=== PATIENT | female | born 1960 | race Caucasian/White ===

== ENCOUNTER 2017-12-31 15:16 | Outpatient (RCR) | payer BC, SELFPAY ==
[2017-12-31 19:38] LABS: HCT 38.3 % (36.0-46.0); HGB 12.6 g/dL (12.0-15.5); Mean Corp. HGB Concentration 32.9 g/dL (32.0-36.0); Mean Corpuscular Hemoglobin 28.7 pg (27.0-33.0); Mean Corpuscular Volume 87.2 fL (80-95); Mean Platelet Volume 11.7 fL (8.0-11.0); RBC 4.39 m/cumm (4.00-5.20); RBC Distribution Width 15.7 % (11.7-14.6); White Blood Cell Count 10.71 k/cumm (4.4-10.8)
[2017-12-31 19:51] LABS: ALT 67 U/L (12-78); AST 31 U/L (15-37); Albumin 3.5 g/dL (3.4-5.0); Alkaline Phosphatase 89 U/L (46-116); Anion Gap 11.7 mmol/L (3-11); BUN 25 mg/dL (7-18); Bilirubin, Total 0.9 mg/dL (0.2-1.0); CO2 26.3 mmol/L (21.0-32.0); CREATININE 1.92 mg/dL (0.55-1.02); Calcium 9.8 mg/dL (8.5-10.1); Chloride 97 mmol/L (98-107); Estimated GFR 27.02 (mL/min/1.73m2); Glucose 112 mg/dL (70-100); Potassium 4.6 mmol/L (3.5-5.1); Sodium 135 mmol/L (136-145); Total Protein 7.3 g/dL (6.4-8.2)
[2017-12-31 20:36] LABS: Absolute Eosinophil Count 0.32 k/cumm (0.0-0.7); Absolute Lymphocyte Count 0.75 k/cumm (1.2-3.4); Absolute Monocyte Count 1.39 k/cumm (0.11-0.7); Absolute Neutrophil Count 8.25 k/cumm (1.2-6.7)
[2017-12-31 20:37] LABS: Diff Comment Manual Differential; Platelet Count 222 x1000/uL (130-400); RBC Morphology Normal
== END 2018-01-06 23:59 | disposition home or self-care (01) ==
LOC: NCHCN 15:16
PROVIDERS: PCP Internal Medicine; Visit Provider Internal Medicine
DX: N10 Acute pyelonephritis (principal); B02.9 Zoster without complications; K76.0 Fatty (change of) liver, not elsewhere classified
CPT/HCPCS: 80053; 85025

== ENCOUNTER 2019-01-14 10:50 | Outpatient (REF) | payer BC, SELFPAY | END 2019-01-14 11:10 | LOC: NCHCN 10:50 | PROVIDERS: PCP Internal Medicine; Visit Provider Nurse Practitioner Family | DX: N39.0 Urinary tract infection, site not specified (principal) | CPT/HCPCS: 87077; 87086; 87186 ==

== ENCOUNTER 2019-08-02 20:39 | Outpatient (REF) | payer BC, SELFPAY ==
[2019-08-02 18:50] LABS: HCT 41.1 % (36.0-46.0); HGB 13.9 g/dL (12.0-15.5); Mean Corp. HGB Concentration 33.8 g/dL (32.0-36.0); Mean Corpuscular Hemoglobin 30.2 pg (27.0-33.0); Mean Corpuscular Volume 89.2 fL (80-95); Platelet Count 193 x1000/uL (130-400); RBC 4.61 m/cumm (4.00-5.20); RBC Distribution Width 15.4 % (11.7-14.6); White Blood Cell Count 7.85 k/cumm (4.4-10.8)
[2019-08-02 19:21] LABS: ALT 41 U/L (14-59); AST 35 U/L (15-37); Albumin 3.8 g/dL (3.4-5.0); Alkaline Phosphatase 82 U/L (46-116); Anion Gap 9.9 mmol/L (3-11); BUN 28 mg/dL (7-18); Bilirubin, Total 0.6 mg/dL (0.2-1.0); CO2 25.1 mmol/L (21.0-32.0); CREATININE 1.51 mg/dL (0.55-1.02); Chloride 102 mmol/L (98-107); Estimated GFR 35.39 (mL/min/1.73m2); Glucose 237 mg/dL (74-106); Potassium 3.9 mmol/L (3.5-5.1); Sodium 137 mmol/L (136-145); TSH 0.55 uIU/mL (0.36-3.74); Total Protein 7.2 g/dL (6.4-8.2)
[2019-08-02 19:38] LABS: Hemoglobin A1C 6.1 % (3.8-5.6)
[2019-08-04 13:32] LABS: Tacrolimus 7.1 ng/mL (See Note)
== END 2019-08-02 20:59 ==
LOC: NCHCN 20:39
PROVIDERS: PCP Internal Medicine; Visit Provider Internal Medicine
DX: Z94.0 Kidney transplant status (principal); R73.9 Hyperglycemia, unspecified; Z68.37 Body mass index [BMI] 37.0-37.9, adult; Z51.81 Encounter for therapeutic drug level monitoring
CPT/HCPCS: 80053; 85027; 80197; 83036; 84443

== ENCOUNTER 2019-10-12 11:52 | Outpatient (REF) | payer BC, SELFPAY ==
[2019-10-14 23:25] LABS: SARS-CoV-2 RNA Undetected (Undetected); SARS-CoV-2 Specimen Source Nasopharynx
== END 2019-10-12 12:12 ==
LOC: NCHCN 11:52
PROVIDERS: PCP Internal Medicine; Visit Provider Physician Assistant
DX: Z20.828 Contact with and (suspected) exposure to other viral communicable diseases (principal)
CPT/HCPCS: U0003

== ENCOUNTER 2020-07-30 16:26 | Outpatient (REF) | payer BC, SELFPAY ==
--- OUTSIDE RECORDS SUMMARY | 2020-07-30 16:32 | XMS_ITS ---
:1960 Author Care Team Providers Name Role Phone TONI EDWARDS MD Primary Care Provider [phone] Allergies Code Code System Name Reaction Severity Status Onset 8394297 RxNorm Latex ? ? Active ? Medications Name Status Start Date Stop Date ? ? Aerochamber Plus Flow-Vu Active ? Not annette ilable albuterol sulfate HFA 90 Active ? Not annette ilable mcg/actuation aerosol inhaler allopurinol 300 mg tablet Active ? Not av ailable amoxicillin 500 mg capsule Completed ? 11/08 cephalexin 500 mg capsule Completed ? 2019 ciprofloxacin 250 mg tablet Completed 03/25/201703/10 1 (one) Tablet: two times daily Contour Next Meter Active ? Not available cyclobenzaprine 10 mg tablet Completed ? 04/2019 fluoxetine 20 mg capsule Active ? Not annette ilable hydrocodone 5 mg-acetaminophen Completed ? 0 11/09/2019 325 mg tablet hydroxyzine HCl 25 mg tablet Active ? Not available ondansetron 4 mg disintegrating Active ? Not available tablet ondansetron HCl 4 mg tablet Active ? Not available Prograf 1 mg capsule Active ? Not availab le sulfamethoxazole 400 Completed ? 11/09/2019 mg-trimethoprim 80 mg tablet sulfamethoxazole 800 Completed ? 11/09/2019 mg-trimethoprim 160 mg tablet timolol maleate 0.5 % eye drops Active ? Not available triamcinolone acetonide 0.1 % Completed ? topical cream triamcinolone acetonide 0.1 % Completed ? topical ointment valacyclovir 1 gram tablet Completed ? 11/08 valacyclovir 500 mg tablet Completed ? 11/08 Problems Name Status Onset Date Source ? Polyp of Colon Active 12/29/2017 ? Hyperlipidemia Active 12/29/2017 ? Gout Active 12/29/2017 ? Insomnia Active 12/29/2017 ? Glaucoma Active 12/29/2017 ? Osteoarthritis Active 12/29/2017 ? Chronic Back Pain Active 12/29/2017 ? Bursitis Active 12/29/2017 ? Screening for Malignant Neoplasm of Active ? History Cervix Procedures Date Name Performed by ? 03/09/1987 Tubal Ligation Information not avai lable 03/09/1981 Breast Reconstruction Information not av ailable Notes: breast reduction ? Transplant of Kidney Information not annette ilable Notes: Kidney Transplant Results Lab Results Date Name Specimen Result Interpretation Description Value Range Status Address ? 11/09/2019 Pap Test, MISC ? Hpv see report ? Final [facility] Hospital Lab (Internal) : [address] ? ? MISC ? Pap see report ? Final [facility] L ab (Internal) : [address] ? ? MISC ? Report (see below) ? Final [facility] L ab (Internal) : [address] 10/25/2018 Pap Test, MISC - Hpv see report ? Final [facility] Lab (Internal) : [address] ? ? MISC - Pap see report ? Final [facility] L ab (Internal) : [address] ? ? MISC - Report (added) ? Corrected [facility] L ab (Internal) : [address] 07/29/2018 Tacrolimus, BLD - Fk 506 7.5 NG/mL ? [facility] Quant, Serum Coun try or Plasma Hospita l Lab (Internal) : [address] 07/08/2018 Tacrolimus, BLD - Fk 506 9.5 NG/mL ? [facility] Quant, Serum Coun try or Plasma Hospita l Lab (Internal) : [address] 06/16/2018 Tacrolimus, BLD - Fk 506 9.5 NG/mL ? [facility] Quant, Serum Coun try or Plasma Hospita l Lab (Internal) : [address] 06/16/2018 Urinalysis, UR - UA-color yellow pale Final [place] [facility] Complete yellow [facility] Hospital L ab (Internal) : [address] ? ? UR - UA-appea clear clear Final [place] [facility] r [facility] Hospital L ab (Internal) : [address] ? ? UR - UA-spec 1.010 1.003- Final [place] [facility] Grav 1.035 [facility] Hospital L ab (Internal) : [address], [address] ? ? UR - UA-pH 5.5 [pH] 4.6-8. Final [facility] [facility] 0 [pH] [facility] ab (Internal) : [address] t ? ? UR ABNORMA UA-leuk trace negati Final [facility] ab (Internal) : [address] t ? ? UR - UA-nitri negative negati Final [facility] ab (Internal) : [address] t ? ? UR - UA-prot negative negati Final [facility] ab (Internal) : [address] t ? ? UR - UA-gluc negative negati Final [facility] ab (Internal) : [address] t ? ? UR - UA-keton negative negati Final [facility] ab (Internal) : [address] t ? ? UR - UA-urobi normal normal Final [facility] (Internal) : [address] t ? ? UR - UA-bili negative negati Final [facility] ab (Internal) : [address] t ? ? UR - UA-blood negative negati Final [facility] ab (Internal) : [address] ? ? UR ABNORMA UA-WBC 3-5 [hpf] 0-[address] [facility] [hpf] [facility] ab (Internal) : [address] ? ? UR - UA-RBC 0-2 [hpf] 0-2 Final [facility] [facility] [hpf] [facility] ab (Internal) : [address] t ? ? UR ABNORMA UA-bacte few [hpf] none Final [facility] L subhash seen [facility] [hpf] Hospital ab (Internal) : [address] t ? ? UR - UA-epith rare [hpf] none Final Nor th elial seen [facility] [hpf] Hospital ab (Internal) : [address] t ? ? UR - UA-mucus none seen none Final Nort h [hpf] seen [facility] [hpf] Hospital ab (Internal) : [address] [facility] 06/16/2018 Protein/creat UR - Prot/cre 0.33 mg/dL ? Final [place] inine, Ratio, a Ratio, C ountry Urine U [facility] [address] [facility] ? ? UR - U-crea, 45 mg/dL 30-125 Final [place] Spot mg/dL [facility] (Internal[facility] : [address] [facility] ? ? UR High U-prot, 15.0 mg/dL 0.0-11 Final Nort h Spot .9 [facility] mg/dL Hospital L ab (Internal) : [address] [facility] 06/16/2018 Uric Acid, S High Urca 12.5 mg/dL 2.5-6. Final [place] Serum or 2 [facility] Plasma mg/dL Hospital L ab (Internal) : [address] [facility] 06/16/2018 Magnesium, S - mg 1.8 mg/dL 1.6-2. Final [facility] [facility] QN, Serum or 3 Coun try Plasma mg/dL Hospital L ab (Internal) : [address] [facility] 06/16/2018 Cholesterol, S High Chol 208 mg/dL 50-200 Lu l [place] Total, Serum mg/dL Coun try Hospital L ab (Internal) : [address] [facility] 06/16/2018 CMP, Serum or S - g/r 104 mg/dL 74-106 Fin al [facility] Plasma mg/dL [facility] L ab (Internal) : [address] ? ? S High Bun 33 mg/dL 7-17 Final [facility] mg/dL [facility] L ab (Internal) : [address] ? ? S High Crea 1.50 mg/dL 0.52-1 Final [place] .04 [facility] mg/dL Hospital L ab (Internal) : [address] ? ? S - Ca 10.1 mg/dL 8.4-10 Final [place] .2 [facility] mg/dL Hospital L ab (Internal) : [address] ? ? S - Na 137 mmol/L 137-14 Final [place] 5 [facility] mmol/L Hospital L ab (Internal) : [address] ? ? S - K 4.4 mmol/L 3.5-5. Final [place] 1 [facility] mmol/L Hospital L ab (Internal) : [address] ? ? S - Cl 105 mmol/L 98-107 Final [place] mmol/L [facility] L ab (Internal) : [address] ? ? S - Tco2 23.0 mmol/L 22.0-3 Final [facility] [facility] 0.0 [facility] mmol/L Hospital L ab (Internal) : [address] ? ? S - Tp 7.4 g/dL 6.3-8. Final [facility] [facility] 2 g/dL [facility] Hospital L ab (Internal) : [address] ? ? S - Alb 4.1 g/dL 3.5-5. Final [place] 0 g/dL [facility] Hospital L ab (Internal) : [address] ? ? S - Tbil 0.7 mg/dL 0.2-1. Final [place] 3 [facility] mg/dL Hospital L ab (Internal) : [address] ? ? S - Alp 79 U/L 50-136 Final [place] U/L [facility] L ab (Internal) : [address] ? ? S - Alt 25 U/L 9-52 Final [facility] [facility] (Sgpt) U/L [facility] L ab (Internal) : [address] ? ? S - Ast 33 U/L 14-36 Final [place] (Sgot) U/L [facility] L ab (Internal) : [address] 06/16/2018 Phosphorus, S High Phos 4.6 mg/dL 2.5-4. Final [facility] [facility] Serum or 5 [facility] Plasma mg/dL Hospital L ab (Internal) : [address]al 06/16/2018 CBC W/ Auto BLD - Wbc 5.9 10*3/uL 5.0-10 Fin al [place] Diff .0 [facility] 10*3/u Hospital L ab L (Internal) : [address] ? ? BLD - Rbc 4.85 4.10-5 Final [place] 10*6/uL .30 [facility] 10*6/u Hospital L ab L (Internal) : [address] ? ? BLD - Hgb 13.8 g/dL 12.0-1 Final [facility] 6.0 [facility] g/dL Hospital L ab (Internal) : [address] ? ? BLD - Hct 41.7 % 37.0-4 Final [facility] 7.0 % [facility] L ab (Internal) : [address] ? ? BLD - Mcv 86.0 fL 80.0-9 Final [facility] 6.0 fL [facility] L ab (Internal) : [address] ? ? BLD - Mch 28.5 pg 26.0-3 Final [facility] 2.0 pg [facility] L ab (Internal) : [address] ? ? BLD - Mchc 33.1 g/dL 31.0-3 Final [facility] 5.0 [facility] g/dL Hospital L ab (Internal) : [address] ? ? BLD High Rdw 14.9 % 11.5-1 Final [facility] 4.5 % [facility] L ab (Internal) : [address] ? ? BLD - Plt 181 10*3/uL 130-45 Final [facility] 0 [facility] 10*3/u Hospital L ab L (Internal) : [address] ? ? BLD - Anc 3.78 ? Final [facility] 10*3/uL [facility] L ab (Internal) : [address] ? ? BLD - Neutro 63.8 % 40.0-7 Final [facility] 5.0 % [facility] L ab (Internal) : [address] ? ? BLD Low Lymph 19.9 % 20.0-5 Final [facility] 0.0 % [facility] L ab (Internal) : [address] ? ? BLD High Cowley 11.7 % 2.0-10 Final [facility] .0 % [facility] L ab (Internal) : [address] ? ? BLD - Eos 3.4 % 1.0-6. Final [facility] 0 % [facility] L ab (Internal) : [address] ? ? BLD - Baso 0.7 % 0.0-1. Final [facility] 0 % [facility] L ab (Internal) : [address] ? ? BLD - Ig 0.5 % 0.0-0. Final [facility] 9 % [facility] L ab (Internal) : [address] 12/29/2017 CBC W/ Auto BLD High Wbc 13.7 5.0-10 Final N orth Diff 10*3/uL .0 [facility] 10*3/u Hospital L ab L (Internal) : [address] ? ? BLD - Rbc 5.00 4.10-5 Final [place] 10*6/uL .30 [facility] 10*6/u Hospital L ab L (Internal) : [address] ? ? BLD - Hgb 14.5 g/dL 12.0-1 Final [place] 6.0 [facility] g/dL Hospital L ab (Internal) : [address] ? ? BLD - Hct 42.2 % 37.0-4 Final [place] 7.0 % [facility] L ab (Internal) : [address] ? ? BLD - Mcv 84.4 fL 80.0-9 Final [place] 6.0 fL [facility] L ab (Internal) : [address] ? ? BLD - Mch 29.0 pg 26.0-3 Final [place] 2.0 pg [facility] L ab (Internal) : [address] ? ? BLD - Mchc 34.4 g/dL 31.0-3 Final [place] 5.0 [facility] g/dL Hospital L ab (Internal) : [address] ? ? BLD High Rdw 15.6 % 11.5-1 Final [place] 4.5 % [facility] L ab (Internal) : [address] ? ? BLD - Plt 171 10*3/uL 130-45 Final [place] 0 [facility] 10*3/u Hospital L ab L (Internal) : [address] 12/29/2017 Lipase, Serum S - Lip 61 U/L 23-300 Final [facility] or Plasma U/L [facility] L ab (Internal) : [address] 12/29/2017 CMP, Serum or S High g/r 160 mg/dL 74-106 Fin al [facility] Plasma mg/dL [facility] L ab (Internal) : [address] ? ? S High Bun 30 mg/dL 7-17 Final [facility] mg/dL [facility] L ab (Internal) : [address] ? ? S High Crea 2.20 mg/dL 0.52-1 Final [facility] .04 [facility] mg/dL Hospital L ab (Internal) : [address] t ? ? S High Ca 10.3 mg/dL 8.4-10 Final [facility] .2 [facility] mg/dL Hospital L ab (Internal) : [address] t ? ? S Low Na 136 mmol/L 137-14 Final [facility] 5 [facility] mmol/L Hospital L ab (Internal) : [address] t ? ? S - K 3.8 mmol/L 3.5-5. Final [facility] 1 [facility] mmol/L Hospital L ab (Internal) : [address] t ? ? S - Cl 100 mmol/L 98-107 Final [place] mmol/L [facility] L ab (Internal) : [address] t ? ? S Low Tco2 21.0 mmol/L 22.0-3 Final [facility] 0.0 [facility] mmol/L Hospital L ab (Internal) : [address] t ? ? S High Tp 8.4 g/dL 6.3-8. Final [facility] 2 g/dL [facility] L ab (Internal) : [address] t ? ? S - Alb 4.6 g/dL 3.5-5. Final [facility] 0 g/dL [facility] L ab (Internal) : [address] t ? ? S High Tbil 1.7 mg/dL 0.2-1. Final [facility] 3 [facility] mg/dL Hospital L ab (Internal) : [address] t ? ? S - Alp 83 U/L 50-136 Final [place] U/L [facility] L ab (Internal) : [address] t ? ? S High Alt 63 U/L 9-52 Final [place] [facility] (Sgpt) U/L [facility] L ab (Internal) : [address] t ? ? S High Ast 56 U/L 14-36 Final [facility] (Sgot) U/L [facility] L ab (Internal) : [address] t 12/29/2017 Differential, BLD High Polys 81 % 40-75 Final [facility] [facility] Manual, Blood % Cou ntr Hospital L ab (Internal) : [address] t ? ? BLD - Bands 2 % 0-5 % Final [facility] L ab (Internal) : [address] t ? ? BLD Low Lymphs 7 % 20-50 Final [facility] Hospital L ab (Internal) : [address] t ? ? BLD - Cowley 10 % 2-10 % Final [facility] L ab (Internal) : [address] t ? ? BLD - Eos 0 % 0-6 % Final [facility] L ab (Internal) : [address] t ? ? BLD - Baso 0 % 0-1 % Final [facility] L ab (Internal) : [address] t ? ? BLD - Atyp 0 % ? Final [facility] L ab (Internal) : [address] t ? ? BLD - Plts, adequate adequa Final [place] [facility] Est. te [facility] Hospital L ab (Internal) : [address] t ? ? BLD ABNORMA RBC abnormal normal Final [facility] Morpholog [facility] Hospital L ab (Internal) : [address] t ? ? BLD - Aniso occasional ? Final [facility] ab (Internal) : [address] t 12/29/2017 Neutrophil BLD - Anc-manu 11.40 ? Final [place] [facility] Count, al 10*3/uL [facility] Lab (Anc), Blood (Int ernal): [address] t 12/29/2017 Culture, BLD - Final microbiolog ? Final [facility] [facility] Blood 1 y results [facility] L ab (Internal) : [address] t 12/29/2017 Culture, BLD - Final microbiolog ? Final [place] [facility] Blood 2 y results [facility] L ab (Internal) : [address] t 12/29/2017 Urinalysis, UR - UA-color pale yellow pale Final [place] Dipstick, yellow [facility] Reflex Micro Hosp ital Lab (Internal) : [address] t ? ? UR ABNORMA UA-appea hazy clear Final [facility] L r [facility] L ab (Internal) : [address] ? ? UR - UA-spec 1.010 1.003- Final [place] Grav 1.035 [facility] ab (Internal) : [address] ? ? UR - UA-pH 6.0 [pH] 4.6-8. Final [place] [facility] 0 [pH] [facility] ab (Internal) : [address] t ? ? UR ABNORMA UA-leuk trace negati Final [facility] ab (Internal) : [address] t ? ? UR - UA-nitri negative negati Final [facility] ab (Internal) : [address] t ? ? UR - UA-prot negative negati Final [facility] ab (Internal) : [address] ? ? UR - UA-gluc negative negati Final [facility] ab (Internal) : [address] t ? ? UR - UA-keton negative negati Final [facility] ab (Internal) : [address] ? ? UR - UA-urobi normal normal Final [facility] ab (Internal) : [address] t ? ? UR - UA-bili negative negati Final [facility] ab (Internal) : [address] ? ? UR ABNORMA UA-blood moderate negati [facility] [address] 12/29/2017 Urinalysis, UR ABNORMA UA-WBC 10-25 [hpf] 0-3 F inal [facility] [facility] Microscopic L [hpf] Count Hospital L ab (Internal) : [address] ? ? UR ABNORMA UA-RBC 3-5 [hpf] 0-[address] [facility] [hpf] [facility] ab (Internal) : [address] ? ? UR ABNORMA UA-bacte few [hpf] none Final Nor th L subhash seen [facility] [hpf] Hospital ab (Internal) : [address] ? ? UR - UA-epith rare [hpf] none Final Nor th elial seen [facility] [hpf] Hospital L ab (Internal) : [address] t ? ? UR - UA-mucus none seen none Final Nort h [hpf] seen [facility] [hpf] Hospital ab (Internal) : [address] 12/29/2017 Culture UR - Final microbiolog ? Final [place] ([place] y results Countr y Count), Urine Hos pital Lab (Internal) : [address] 05/26/2017 Pap Test, MISC ? Hpv see report ? Final [place] [facility] Thinprep, [facility] Cervical [facility] Lab (Internal) : [address] ? ? MISC ? Pap see report ? Final [facility] Hospital L ab (Internal) : [address] t ? ? MISC ? Report (added) ? Corrected [facility] results [facility] Hospital L ab (Internal) : [address] 04/24/2017 Venipuncture BLD ? Venpn* ? ? Final [facility] ab (Internal) : [address] 04/24/2017 Culture, UR ? Final microbiolog ? Final [place] Urine y results [facility] ab (Internal) : [address] 04/24/2017 Protein/creat UR ? Prot/cre 0.31 mg/dL ? Final [place] inine, Ratio, a Ratio, C ountry Urine U Hospital L ab (Internal) : [address] ? ? UR ? U-crea, 42 mg/dL 30-125 Final [place] Spot mg/dL [facility] L ab (Internal) : [address] ? ? UR High U-prot, 13.0 mg/dL 0.0-11 Final Nort h Spot .9 [facility] mg/dL Hospital L ab (Internal) : [address] t 04/24/2017 Urinalysis, UR ? UA-WBC 0-3 [hpf] 0-3 Lu [facility] Microscopic [hpf] Count Hospital L ab (Internal) : [address] ? ? UR ? UA-RBC 0-2 [hpf] 0-2 Final [place] [hpf] [facility] L ab (Internal) : [address] ? ? UR ABNORMA UA-bacte few [hpf] none Final Nor th L subhash seen [facility] [hpf] Hospital L ab (Internal) : [address] ? ? UR ABNORMA UA-epith few [hpf] none Final Nor th L elial seen [facility] [hpf] Hospital L ab (Internal) : [address] ? ? UR ? UA-mucus none seen none Final Nort h [hpf] seen [facility] [hpf] Hospital L ab (Internal) : [address] t 04/24/2017 Urinalysis, UR ? UA-color pale yellow pale Final [place] Dipstick, yellow [facility] Reflex Micro Hosp ital Lab (Internal) : [address] ? ? UR ? UA-appea clear clear Final [facility] Hospital L ab (Internal) : [address] ? ? UR ? UA-spec <=1.005 1.003- Final [place] Grav 1.035 [facility] Hospital L ab (Internal) : [address] ? ? UR ? UA-pH 6.5 [pH] 4.6-8. Final [place] 0 [pH] [facility] Hospital L ab (Internal) : [address] ? ? UR ? UA-leuk negative negati Final [facility] Hospital L ab (Internal) : [address] ? ? UR ? UA-nitri negative negati Final [facility] Hospital L ab (Internal) : [address] ? ? UR ? UA-prot negative negati Final [facility] Hospital L ab (Internal) : [address] ? ? UR ? UA-gluc negative negati Final [facility] Hospital L ab (Internal) : [address] ? ? UR ? UA-keton negative negati Final [place] e [facility] Hospital L ab (Internal) : [address] ? ? UR ? UA-urobi normal normal Final [facility] (Internal) : [address] ? ? UR ? UA-bili negative negati Final [facility] Hospital L ab (Internal) : [address] ? ? UR ABNORMA UA-blood trace negati Final [facility] Hospital L ab (Internal) : [address] 04/24/2017 Tacrolimus, BLD ? Fk 506 7.4 NG/mL ? Lu l [place] Quant, Serum Coun try or Plasma Hospita l Lab (Internal) : [address] 04/24/2017 Uric Acid, S High Urca 8.8 mg/dL 2.5-6. Final [place] Serum or 2 [facility] Plasma mg/dL Hospital L ab (Internal) : [address] [facility] 04/24/2017 Magnesium, S Low mg 1.4 mg/dL 1.6-2. Final [place] QN, Serum or 3 Coun try Plasma mg/dL Hospital L ab (Internal) : [address] 04/24/2017 Cholesterol, S ? Chol 188 mg/dL 50-200 Lu l [place] Total, Serum mg/dL Coun try Hospital L ab (Internal) : [address] [facility] 04/24/2017 CMP, Serum or S ? g/r 98 mg/dL 74-106 Lu l [place] Plasma mg/dL [facility] Hospital L ab (Internal) : [address] ? ? S High Bun 25 mg/dL 7-17 Final [place] mg/dL [facility] Hospital L ab (Internal) : [address] ? ? S High Crea 1.70 mg/dL 0.52-1 Final [place] .04 [facility] mg/dL Hospital L ab (Internal) : [address] ? ? S ? Ca 9.7 mg/dL 8.4-10 Final [place] .2 [facility] mg/dL Hospital L ab (Internal) : [address] ? ? S ? Na 140 mmol/L 137-14 Final [place] 5 [facility] mmol/L Hospital L ab (Internal) : [address] ? ? S ? K 4.2 mmol/L 3.5-5. Final [place] 1 [facility] mmol/L Hospital L ab (Internal) : [address] ? ? S ? Cl 102 mmol/L 98-107 Final [place] mmol/L [facility] Hospital L ab (Internal) : [address] ? ? S ? Tco2 26.0 mmol/L 22.0-3 Final [place] 0.0 [facility] mmol/L Hospital L ab (Internal) : [address] ? ? S ? Tp 7.0 g/dL 6.3-8. Final [place] 2 g/dL [facility] Hospital L ab (Internal) : [address] ? ? S ? Alb 3.9 g/dL 3.5-5. Final [place] 0 g/dL [facility] Hospital L ab (Internal) : [address] ? ? S ? Tbil 0.7 mg/dL 0.2-1. Final [place] 3 Country mg/dL Hospital L ab (Internal) : [address] ? ? S ? Alp 87 U/L 50-136 Final [place] U/L [facility] Hospital L ab (Internal) : [address] ? ? S ? Alt 35 U/L 9-52 Final [place] (Sgpt) U/L [facility] Hospital L ab (Internal) : [address] ? ? S ? Ast 26 U/L 14-36 Final [place] (Sgot) U/L [facility] Hospital L ab (Internal) : [address] 04/24/2017 Phosphorus, S ? Phos 3.7 mg/dL 2.5-4. Final [place] Serum or 5 Country Plasma mg/dL Hospital L ab (Internal) : [address] 04/24/2017 CBC W/ Auto BLD ? Wbc 5.2 10*3/uL 5.0-10 Fin al [place] Diff .0 [facility] 10*3/u Hospital L ab L (Internal) : [address] ? ? BLD ? Rbc 4.39 4.10-5 Final [place] 10*6/uL .30 [facility] 10*6/u Hospital L ab L (Internal) : [address] ? ? BLD ? Hgb 13.1 g/dL 12.0-1 Final [place] 6.0 [facility] g/dL Hospital L ab (Internal) : [address] ? ? BLD ? Hct 37.6 % 37.0-4 Final [place] 7.0 % [facility] Hospital L ab (Internal) : [address] ? ? BLD ? Mcv 85.6 fL 80.0-9 Final [place] 6.0 fL [facility] Hospital L ab (Internal) : [address] [place] ? ? BLD ? Mch 29.8 pg 26.0-3 Final [facility] 2.0 pg [facility] Hospital L ab (Internal) : [address] [place] ? ? BLD ? Mchc 34.8 g/dL 31.0-3 Final [place] 5.0 [facility] g/dL Hospital L ab (Internal) : [address] [place] ? ? BLD High Rdw 14.8 % 11.5-1 Final [facility] 4.5 % [facility] Hospital L ab (Internal) : [address] [place] ? ? BLD ? Plt 177 10*3/uL 130-45 Final [place] 0 [facility] 10*3/u Hospital L ab L (Internal) : [address] [place] ? ? BLD ? Anc 3.19 ? Final [place] 10*3/uL [facility] Hospital L ab (Internal) : [address] [place] ? ? BLD ? Neutro 61.9 % 40.0-7 Final [facility] 5.0 % [facility] Hospital L ab (Internal) : [address] [place] ? ? BLD ? Lymph 25.6 % 20.0-5 Final [facility] 0.0 % [facility] Hospital L ab (Internal) : [address] [place] ? ? BLD ? Cowley 6.8 % 2.0-10 Final [facility] .0 % [facility] Hospital L ab (Internal) : [address] [place] ? ? BLD ? Eos 4.9 % 1.0-6. Final [place] 0 % [facility] Hospital L ab (Internal) : [address] [place] ? ? BLD ? Baso 0.6 % 0.0-1. Final [place] 0 % Country [facility] (Internal[facility] : [address] [place] ? ? BLD ? Ig 0.2 % 0.0-0. Final [facility] 9 % [facility] : [address] [place] 03/25/2017 Culture, UR ? Final microbiolog ? Final [facility] Urine y results [facility] : [address] [place] 03/25/2017 sensitivities MISC ? Sens* ? ? Final [facility] [I] [facility] : [address] 03/25/2017 Urinalysis, UR ? UA-color pale yellow pale Final [facility] yellow [facility] L ab (Internal) : [address] t ? ? UR ? UA-appea clear clear Final [facility] (Internal) : [address] t ? ? UR ? UA-spec <=1.005 1.003- Final [place] Grav 1.035 [facility] L ab (Internal) : [address] t ? ? UR ? UA-pH 5.5 [pH] 4.6-8. Final [place] 0 [pH] [facility] L [facility] (Internal) : [address] t ? ? UR ABNORMA UA-leuk small negati Final [facility] L ab (Internal) : [address] t ? ? UR ? UA-nitri negative negati Final [facility] L [facility] (Internal) : [address] t ? ? UR ? UA-prot negative negati Final [facility] L ab (Internal) : [address] t ? ? UR ? UA-gluc negative negati Final [facility] L ab (Internal) : [address] t ? ? UR ? UA-keton negative negati Final [facility] L ab (Internal) : [address] t ? ? UR ? UA-urobi normal normal [facility] : [address] t ? ? UR ? UA-bili negative negati Final [facility] L ab (Internal) : [address] t ? ? UR ABNORMA UA-blood large negati Final [facility] L ab (Internal) : [address] t ? ? UR ABNORMA UA-WBC 10-25 [hpf] 0-3 Final Nor th L [hpf] [facility] L [facility] (Internal) : [address] t ? ? UR ? UA-RBC 0-2 [hpf] 0-2 Final [place] [hpf] [facility] (Internal) : [address] t ? ? UR ABNORMA UA-bacte many [hpf] none Final No rth L subhash seen [facility] [hpf] Hospital L ab (Internal) : [address] t ? ? UR ABNORMA UA-epith few [hpf] none Final Nor th L elial seen [facility] [hpf] [facility] L [facility] (Internal) : [address] t ? ? UR ? UA-mucus none seen none Final Nort h [hpf] seen [facility] [hpf] [facility] L [facility] (Internal) : [address] 12/06/2016 Lipase, Serum S ? Lip 55 U/L 23-300 Final [facility] or Plasma U/L [facility] : [address] 12/06/2016 CMP, Serum or S High g/r 142 mg/dL 74-106 Fin al [facility] Plasma mg/dL [facility] : [address] t ? ? S High Bun 27 mg/dL 7-17 Final [facility] mg/dL [facility] : [address] ? ? S High Crea 1.70 mg/dL 0.52-1 Final [facility] .04 [facility] mg/dL Hospital L ab (Internal) : [address] ? ? S ? Ca 9.8 mg/dL 8.4-10 Final [facility] .2 [facility] mg/dL Hospital L ab (Internal) : [address] t ? ? S ? Na 138 mmol/L 137-14 Final [facility] 5 [facility] mmol/L Hospital L ab (Internal) : [address] t ? ? S ? K 4.1 mmol/L 3.5-5. Final [facility] 1 [facility] mmol/L Hospital L ab (Internal) : [address] t ? ? S ? Cl 106 mmol/L 98-107 Final [place] mmol/L [facility] : [address] t ? ? S Low Tco2 17.0 mmol/L 22.0-3 Final [facility] 0.0 [facility] mmol/L Hospital L ab (Internal) : [address] t ? ? S ? Tp 7.6 g/dL 6.3-8. Final [facility] 2 g/dL [facility] : [address] t ? ? S ? Alb 4.5 g/dL 3.5-5. Final [place] 0 g/dL [facility] : [address] ? ? S ? Tbil 0.9 mg/dL 0.2-1. Final [place] 3 [facility] mg/dL Hospital L ab (Internal) : [address] t ? ? S ? Alp 80 U/L 50-136 Final [place] U/L [facility] : [address] ? ? S ? Alt 26 U/L 9-52 Final [place] (Sgpt) U/L [facility] : [address] t ? ? S ? Ast 28 U/L 14-36 Final [place] (Sgot) U/L [facility] : [address] t 12/06/2016 CBC W/ Auto BLD ? Wbc 7.3 10*3/uL 5.0-10 Fin al [place] Diff .0 [facility] 10*3/u Hospital L ab L (Internal) : [address] t ? ? BLD ? Rbc 4.94 4.10-5 Final [place] 10*6/uL .30 [facility] 10*6/u Hospital L ab L (Internal) : [address] ? ? BLD ? Hgb 13.9 g/dL 12.0-1 Final [place] 6.0 [facility] g/dL Hospital L ab (Internal) : [address] ? ? BLD ? Hct 41.8 % 37.0-4 Final [place] 7.0 % [facility] : [address] ? ? BLD ? Mcv 84.6 fL 80.0-9 Final [place] 6.0 fL [facility] : [address] ? ? BLD ? Mch 28.1 pg 26.0-3 Final [place] 2.0 pg [facility] : [address] ? ? BLD ? Mchc 33.3 g/dL 31.0-3 Final [place] 5.0 [facility] g/dL Hospital L ab (Internal) : [address] ? ? BLD ? Rdw 14.0 % 11.5-1 Final [facility] 4.5 % [facility] ([facility] : [address] ? ? BLD ? Plt 168 10*3/uL 130-45 Final [facility] 0 [facility] 10*3/u Hospital L ab L (Internal) : [address] ? ? BLD ? Anc 5.62 ? Final [facility] 10*3/uL [facility] : [address] ? ? BLD High Neutro 77.1 % 40.0-7 Final [facility] 5.0 % [facility] ([facility] : [address] [place] ? ? BLD Low Lymph 11.7 % 20.0-5 Final [facility] 0.0 % [facility] : [address] [place] ? ? BLD ? Cowley 7.8 % 2.0-10 Final [facility] .0 % [facility] : [address] ? ? BLD ? Eos 2.5 % 1.0-6. Final [place] 0 % [facility] L ab (Internal) : [address] ? ? BLD ? Baso 0.4 % 0.0-1. Final [facility] 0 % [facility] : [address] ? ? BLD ? Ig 0.5 % 0.0-0. Final [facility] 9 % [facility] : [address] 04/23/2016 Venipuncture BLD ? Venpn* ? ? Final North [facility] L ab (Internal) : [address] 04/23/2016 [facility] ? [id number] see below ? Final No rth Refrigerate 04/24/2016 C ountry 05:06 pm Hospital Lab (Internal) : [address] 04/23/2016 Urinalysis, UR ? UA-color yellow pale Final [facility] Complete yellow [facility] ([facility] : [address] [place] ? ? UR ? UA-appea clear clear Final North r [facility] L ab (Internal) : [address] [place] ? ? UR ? UA-spec <=1.005 1.003- Final [place] Grav 1.035 [facility] (Internal) : [address] [place] ? ? UR ? UA-pH 6.0 [pH] 4.6-8. Final [place] 0 [pH] [facility] ab (Internal) : [address] ? ? UR ? UA-leuk negative negati Final [facility] ab (Internal) : [address] ? ? UR ? UA-nitri negative negati Final [facility] ab (Internal) : [address] ? ? UR ? UA-prot negative negati Final [facility] ab (Internal) : [address] [place] ? ? UR ? UA-gluc negative negati [facility] ab (Internal) : [address] ? ? UR ? UA-keton negative negati Final [facility] ab (Internal) : [address] [place] ? ? UR ? UA-urobi normal normal [facility] ab (Internal) : [address] [place] ? ? UR ? UA-bili negative negati [facility] ab (Internal) : [address] ? ? UR ABNORMA [facility] [address] [place] ? ? UR ? UA-WBC 0-3 [hpf] 0-3 Final [place] [hpf] [facility] ab (Internal) : [address] [place] ? ? UR ? UA-RBC 0-2 [hpf] 0-2 Final [place] [hpf] [facility] ab (Internal) : [address] ? ? UR ? UA-bacte rare [hpf] none Final Nor th subhash seen [facility] [hpf] Hospital L ab (Internal) : [address] ? ? UR ? UA-epith none seen none Final Nort h elial [hpf] seen [facility] [hpf] Hospital ab (Internal) : [address] ? ? UR ? UA-mucus none seen none Final Nort h [hpf] seen [facility] [hpf] Hospital ab (Internal) : [address] 04/23/2016 Tacrolimus, BLD ? Fk 506 5.6 NG/mL ? Ul l [place] Quant, Serum Coun try or Plasma Hospita l Lab (Internal) : [address] 04/23/2016 Uric Acid, S High Urca 8.4 mg/dL 2.5-6. Final [place] Serum or 2 [facility] Plasma mg/dL Hospital L ab (Internal) : [address] 04/23/2016 Magnesium, S ? mg 1.6 mg/dL 1.6-2. Final [place] QN, Serum or 3 Coun try Plasma mg/dL Hospital L ab (Internal) : [address] t 04/23/2016 Cholesterol, S ? Chol 193 mg/dL 50-200 Lu l [place] Total, Serum mg/dL Coun try Hospital L ab (Internal) : [address] t 04/23/2016 CMP, Serum or S ? g/r 99 mg/dL 74-106 Lu l [place] Plasma mg/dL [facility] ([facility] : [address] ? ? S High Bun 31 mg/dL 7-17 Final [place] mg/dL [facility] (Internal) : [address] ? ? S High Crea 1.30 mg/dL 0.52-1 Final [place] .04 [facility] mg/dL Hospital L ab (Internal) : [address] ? ? S ? Ca 9.7 mg/dL 8.4-10 Final [facility] .2 [facility] mg/dL Hospital L ab (Internal) : [address] t ? ? S ? Na 140 mmol/L 137-14 Final [place] 5 [facility] mmol/L Hospital L ab (Internal) : [address] ? ? S ? K 4.2 mmol/L 3.5-5. Final [place] 1 [facility] mmol/L Hospital L ab (Internal) : [address] t ? ? S ? Cl 99 mmol/L 98-107 Final [place] mmol/L [facility] (Internal) : [address] ? ? S ? Tco2 27.0 mmol/L 22.0-3 Final [place] 0.0 [facility] mmol/L Hospital L ab (Internal) : [address] ? ? S ? Tp 7.9 g/dL 6.3-8. Final [place] 2 g/dL [facility] ([facility] : [address] ? ? S ? Alb 4.6 g/dL 3.5-5. Final [place] 0 g/dL [facility] (Internal[facility] : [address] ? ? S ? Tbil 0.8 mg/dL 0.2-1. Final [place] 3 [facility] mg/dL Hospital L ab (Internal) : [address] t ? ? S ? Alp 87 U/L 50-136 Final [place] U/L [facility] (Internal) : [address] ? ? S High Alt 58 U/L 9-52 Final [place] (Sgpt) U/L [facility]Internal) : [address] ? ? S High Ast 48 U/L 14-36 Final [place] (Sgot) U/L [facility] (Internal[facility] : [address] t 04/23/2016 Phosphorus, S ? Phos 3.6 mg/dL 2.5-4. Final [place] Serum or 5 [facility] Plasma mg/dL Hospital L ab (Internal) : [address] 04/23/2016 CBC W/ Auto BLD ? Wbc 7.4 10*3/uL 5.0-10 Fin al [facility] Diff .0 [facility] 10*3/u Hospital L ab L (Internal) : [address] ? ? BLD ? Rbc 5.01 4.10-5 Final [place] 10*6/uL .30 [facility] 10*6/u Hospital L ab L (Internal) : [address] ? ? BLD ? Hgb 14.5 g/dL 12.0-1 Final [place] 6.0 [facility] g/dL Hospital L ab (Internal) : [address] ? ? BLD ? Hct 42.8 % 37.0-4 Final [place] 7.0 % [facility] (Internal) : [address] ? ? BLD ? Mcv 85.4 fL 80.0-9 Final [place] 6.0 fL [facility] (Internal) : [address] ? ? BLD ? Mch 28.9 pg 26.0-3 Final [facility] 2.0 pg [facility] (Internal) : [address] ? ? BLD ? Mchc 33.9 g/dL 31.0-3 Final [facility] 5.0 [facility] g/dL Hospital L ab (Internal) : [address] ? ? BLD ? Rdw 13.9 % 11.5-1 Final [facility] 4.5 % [facility] (Internal) : [address] ? ? BLD ? Plt 226 10*3/uL 130-45 Final [facility] 0 [facility] 10*3/u Hospital L ab L (Internal) : [address] ? ? BLD ? Anc 5.17 ? Final [facility] 10*3/uL [facility] ([facility] : [address] ? ? BLD ? Neutro 69.5 % 40.0-7 Final [facility] 5.0 % [facility] ([facility] : [address] ? ? BLD Low Lymph 17.2 % 20.0-5 Final [facility] 0.0 % [facility] ([facility] : [address] ? ? BLD ? Cowley 9.0 % 2.0-10 Final [facility] .0 % [facility] ([facility] : [address] ? ? BLD ? Eos 3.5 % 1.0-6. Final [facility] 0 % [facility] ([facility] : [address] ? ? BLD ? Baso 0.5 % 0.0-1. Final [facility] 0 % [facility] ([facility] : [address] ? ? BLD ? Ig 0.3 % 0.0-0. Final [facility] 9 % [facility] ([facility] : [address] Past Encounters 12/07/2019 Abnormal Cervical Papanicolaou Smear Milena Mills MD: [address] [place] [phone], Ph. 11/30/2019 Bilateral Hip Joint Pain; Abnormal Gait Alphonso Shankar, PT: [address] [phone], Ph. 11/15/2019 Bilateral Hip Joint Pain; Abnormal Gait Alphonso Shankar, PT: [address] [phone], Ph. 11/09/2019 Routine Gynecologic Examination Done Milena Mills MD: [address] [place] [phone], Ph. 10/11/2019 Bilateral Hip Joint Pain; Abnormal Gait Alphonso Shankar, PT: [address] [place] [phone], Ph. 09/27/2019 Bilateral Hip Joint Pain; Abnormal Gait Alphonso Shankar, PT: [address] [place] [phone], Ph. 09/20/2019 Bilateral Hip Joint Pain; Abnormal Gait Alphonso Shankar, PT: [address] [place] [phone], Ph. Social History Tobacco Smoking Status Former Smoker Vaccine List Vaccine Type COVID-19, mRNA, LNP-S, PF, 100 mcg/0.5 m L dose 05/24/2020?0.5 mL 06/22/2020?100 mcg rubella Td (adult), adsorbed 03/09/2001 varicella Plan of Care Reminders Provider Appointments None ? ? recorded. Lab None ? ? recorded. Referral None ? ? recorded. Procedures None ? ? recorded. Surgeries None ? ? recorded. Imaging None ? ? recorded. Vitals 12/07/2019 03:30PM Procedure 20 Height Weight BMI Blood Pressure 152.4 cm 98.88 kg 42.6 kg/m2 130/80 mm[Hg] 03/25/2017 Weight 94.35 kg 01/22/2016 Height Weight Blood Pressure 157.48 cm 98.88 kg 128/78 mm[Hg] 10/03/2014 Height Weight Blood Pressure 157.48 cm 90.81 kg 110/74 mm[Hg] 10/03/2013 Height Weight Blood Pressure 157.48 cm 91.08 kg 112/76 mm[Hg] 08/17/2007 Height Weight Blood Pressure 157.48 cm 89.58 kg 112/84 mm[Hg] 08/11/2006 Weight Blood Pressure 88.9 kg 110/62 mm[Hg] 11/26/2005 Weight 90.72 kg 06/28/2004 Height Weight Blood Pressure 157.48 cm 87.09 kg 102/60 mm[Hg]
[2020-07-30 19:15] LABS: Abs Immature Grans 0.05 10^3/uL (0.0-0.06); Absolute Basophil Count 0.05 10^3/uL (0.0-0.2); Absolute Eosinophil Count 0.38 10^3/uL (0.0-0.7); Absolute Lymphocyte Count 1.93 10^3/uL (1.2-3.4); Absolute Monocyte Count 0.98 10^3/uL (0.1-0.8); Absolute Neutrophil Count 7.19 10^3/uL (1.2-6.7); Basophils % 0.5; Eosinophils % 3.6; HGB 15.2 g/dL (11.2-15.7); Immature Grans % 0.5; Lymphocytes % 18.2; MCH 29.9 pg (27.0-33.0); MCV 90.4 fL (80-95); MPV 12.2 fL (8.0-11.0); Monocytes % 9.3; Neutrophils % 67.9; Nucleated RBC 0 %; Platelet Count 246 10^3/uL (130-400); RBC 5.09 10^6/uL (3.93-5.22); RDW 14.9 % (11.7-14.6); RDW-SD 49.1 fL; WBC 10.58 10^3/uL (4.4-10.8)
[2020-07-30 19:43] LABS: ALT 33 U/L (14-59); AST 31 U/L (15-37); Alkaline Phosphatase 87 U/L (46-116); Anion Gap 10.5 mmol/L (3-11); BUN 24 mg/dL (7-18); Bilirubin, Total 0.8 mg/dL (0.2-1.0); C-Reactive Protein 1.27 mg/dL (0.0-0.3); CO2 25.5 mmol/L (21.0-32.0); CREATININE 1.5 mg/dL (0.55-1.02); Calcium 10.2 mg/dL (8.5-10.1); Chloride 105 mmol/L (98-107); ESR 35 mm/hr (0-30); Estimated GFR 35.54 (mL/min/1.73m2); Glucose 93 mg/dL (74-106); Potassium 4.6 mmol/L (3.5-5.1); Sodium 141 mmol/L (136-145); TSH 0.67 uIU/mL (0.36-3.74); Total Protein 7.6 g/dL (6.4-8.2)
[2020-08-01 13:50] LABS: Tacrolimus 7.8 ng/mL (See Note)
== END 2020-07-30 16:27 | disposition home or self-care (01) ==
LOC: NCHCN 16:26
PROVIDERS: PCP Internal Medicine; Visit Provider Internal Medicine
DX: Z94.0 Kidney transplant status (principal); K58.9 Irritable bowel syndrome, unspecified; F41.1 Generalized anxiety disorder; R63.4 Abnormal weight loss
CPT/HCPCS: 80053; 85652; 80197; 84443; 85025; 86140